=== PATIENT | female | born 1970 | race Caucasian/White ===

== ENCOUNTER → 2020-12-04 | Outpatient (CLI) | payer BC ==
[2020-12-04 14:48] LABS: HEMOGLOBIN 13.3 gm/dl (12.3-15.3); RED BLOOD COUNT 4.6 M/UL (4.00-5.10)
[2020-12-04 15:06] LABS: BUN/CREATININE RATIO 13 (0-10)
== END ==
LOC: LAB 13:54
PROVIDERS: Nurse Practitioner Family
DX: R68.83 Chills (without fever) (principal); L50.9 Urticaria, unspecified; R11.10 Vomiting, unspecified
CPT/HCPCS: 36415; 80053; 82150; 83690; 85025